=== PATIENT | male | born 1945 | race American Indian/Alaskan Native ===

== ENCOUNTER 2017-02-03 10:22 | Day surgery (SDC) | payer MEDICARE ==
--- NOTE | 2017-02-03 11:08 | Anesthesia Consultation ---
Anesthesia Consult and Med Hx Date of service: 02/03/17 - Airway Anesthetic Teeth Evaluation: Good, Chipped (top front, left right molar), Caps ROM Head & Neck: Adequate Mental/Hyoid Distance: Adequate Mallampati Class: Class II Intubation Access Assessment: Probably Good - Pulmonary Exam CTA: Yes - Cardiac Exam Cardiac Exam: RRR - Pre-Operative Health Status ASA Pre-Surgery Classification: ASA2 Proposed Anesthetic Plan: MAC - Pulmonary Hx Smoking: Yes (quit 20 yrs ago) Hx Respiratory Symptoms: Yes (sinus problems, cough ) Hx Sleep Apnea: No - Cardiovascular System Hx Hypertension: Yes Hx Heart Attack/AMI: No - Central Nervous System Hx Neuromuscular Disorder: Yes (left arm chronic pain) Hx Seizures: Yes (patient reports "sleep seizures") CVA: No - Endocrine Hx Renal Disease: No Hx Cirrhosis: No Hx Insulin Dependent Diabetes: No Hx Thyroid Disease: No Hx Hypothyroidism: No - Other Systems Hx Cancer: No Hx Obesity: No
--- NOTE | 2017-02-03 11:08 | Anesthesia Day of Surgery ---
Anesthesia Day of Surgery - Day of Surgery Patient Examined: Yes Patient H&P Reviewed: Yes Patient is NPO: Yes Beta Blockers: Yes
[2017-02-03] MEDS ORDERED: DIPRIVAN 10 MG/ML IV ONE ×2 (11:21)
[2017-02-03] MEDS ORDERED: WATER FOR IRRIG STERILE IR ONE (11:22)
[2017-02-03] MEDS: NACL 0.9% 1000 ML 1,000 ML IV SCH ×2 (11:39→18:35)
[2017-02-03] MEDS ORDERED: WATER FOR IRRIG STERILE ONE (11:59)
[2017-02-03] MEDS ORDERED: LOPRESSOR IV ONE (12:00)
[2017-02-03] MEDS ORDERED: XYLOCAINE TOPICAL 2% ONE (12:05)
--- NOTE | 2017-02-03 12:48 | Operative Report ---
Operative Report Operative Report: Date of procedure: 02/03/2017 Procedure: Colonoscopy. Hemorrhoidal Band Ligation Attending physician: Antolin Dobbs MD Mechanical Maintenance Engineer: Antolin Dobbs MD Indication: Patient is a 64-year-old male who presents for colonoscopy. He has a history of rectal bleeding and rectal pain. A colonoscopy service to evaluate patients symptoms and also for colorectal cancer screening. Consent: Informed consent was obtained after advising the patient and family regarding nature of this procedure, its indications, potential benefits as well as possible complications including but not limited to bleeding perforation and adverse reaction to medication, infection as well as other cardiopulmonary complications. An informed written and verbal consent was then obtained after due opportunity was provided for questions and answers. Monitoring: Patient was monitored continuously with pulse oximetry and electrocardiographic recordings as well as blood pressure recordings. Vital signs remained stable throughout this procedure with no untoward events. Preoperative assessment: Patient was assessed immediately prior to this procedure for capacity to tolerate monitored anesthesia care and moderate sedation as well as general anesthesia. Patient's ASA classification is 2, Mallampati class is 2, Hyomental distance is 3. Instrument: Fujinon videocolonoscope. Fujinon video endoscope. Multiple band ligator: Speedband SuperView Super 7 ([employer]) Medications: Propofol given intravenously in divided doses. For details please refer to anesthesia records. Description of procedure: Patient was placed in the left lateral decubitus position after achieving sedation, a digital rectal examination was performed following which the colonoscope was introduced into the anal verge and advanced to the cecum which was identified by the cecal valve, the appendiceal orifice, as well as by the cecal strap and direct transillumination. The colonoscope was subsequently withdrawn with careful inspection of all mucosal surfaces. Patient tolerated this procedure well and was subsequently taken to the recovery room. The following findings were noted. Findings: Patient had significant diverticulosis involving the sigmoid colon and the descending colon. The ascending colon was also involved but much less so. The rest of the colon to the cecum was normal, except for areas of retained stool. On the retroflex view at the anal verge, patient had prominent large friable internal hemorrhoids. After completing the colonoscopic examination, the Fujinon video endoscope was preloaded with the multiple band ligator. It was then reintroduced into the rectum after using lidocaine gel to numb the rectum. Following this, in a retroflexed view, multiple bands were applied over the internal hemorrhoids. In all, all 7 bands were applied due to size of internal hemorrhoids. All bands were applied above the dentate line. Patient tolerated the procedure well with no untoward events. Impression: Diverticular disease of the colon. Prominent friable Internal hemorrhoids, status post successful hemorrhoidal band ligation. Plan: Daily sitz baths. High-fiber diet. Patient to apply lidocaine ointment 5% per rectum every 6 hours as needed. Anusol HC suppositories per rectum every night. Patient to use stool softeners as needed. MiraLAX 17 g in 8 ounce glass of water has been prescribed. Tramadol 50 mg every 6 hours as needed for pain. Patient is scheduled for further outpatient follow-up. Patients further instructed that if he has persistent bleeding and or fevers to call the office immediately..
[2017-02-03 12:53] VITALS: BP 129/88
--- NOTE | 2017-02-03 14:54 | Post Anesthesia Evaluation ---
- Post Anesthesia Evaluation Patient Participated: Yes Airway Patent: Yes Stable Respiratory Function: Yes Nausea/Vomiting: No Temp > 96.8F: Yes Pain Manageable: Yes Adequeate Hydration: Yes Anesthesia Complications: No Block Receding Appropriately: Not Applicable Patient on Ventilator: No
== END 2017-02-03 10:23 | disposition home or self-care (01) ==
LOC: GIO 10:22
PROVIDERS: ATTEND Internal Medicine Gastroenterology
DX: K64.8 Other hemorrhoids (principal); K57.30 Diverticulosis of large intestine without perforation or abscess without bleeding; M19.90 Unspecified osteoarthritis, unspecified site; I10 Essential (primary) hypertension; Z87.891 Personal history of nicotine dependence; Z72.89 Other problems related to lifestyle
CPT/HCPCS: 45350; J2704; J7030

== ENCOUNTER 2017-02-07 13:34 | Emergency (ER) | payer MEDICARE ==
[2017-02-07 14:42] VITALS: BP 137/81
--- NOTE | 2017-02-07 14:53 | Emergency Department Report ---
Entered by ANTOINETTE FORREST, acting as scribe for ANTONI SUAREZ NP. Chief Complaint: Urogenital-Male Stated Complaint: CANNOT URINATE Time Seen by Provider: 02/07/17 14:44 - HPI History of Present Illness: 71 y/o non-toxic, non ill-appearing male in no acute distress presents to ED c/ o inability to urinate since 2 days ago. Reports he recently had a colonoscopy and hemorrhoid procedure on 02/03/2017, 2 days prior to current Sx. Denies burning with urination before urinary symptoms, penile ulcers or lesions. Denies abdominal pain, nausea, vomiting, chest pain, SOB, or extremity swelling. - ROS Review of Systems: + urinary retention - burning with urination, penile ulcers - chest pain, SOB, abdominal pain, nausea, vomiting, extremity swelling - Exam Vital Signs: Vital Signs 02/07/17 14:35 Temperature 97.8 F Pulse Rate 54 L Respiratory 20 Rate Blood Pressure 137/81 O2 Sat by Pulse 97 Oximetry Physical Exam: Pt is non ill appearing, non-toxic, no acute distress MSE screening note: Focused history and physical exam performed. Due to findings the following was ordered: CBC, CMP, UA, CK ED Disposition for MSE Condition: Stable This documentation as recorded by the scribe,ANTOINETTE FORREST,accurately reflects the service I personally performed and the decisions made by ,ANTONI SUAREZ, BECK.
[2017-02-07 15:10] LABS: Basophils % (Auto) 0.4 % (0.0-1.8); Eosinophils % (Auto) 2.4 % (0.0-4.3); Hemoglobin 13.5 gm/dl (11.8-15.2); Mean Corpuscular HGB Conc 33 % (32-34); Mean Corpuscular Hemoglobin 33 pg (28-32); Mean Corpuscular Volume 99 fl (84-94); Platelet Count 220 K/mm3 (140-440); Red Blood Count 4.13 M/mm3 (3.65-5.03); Red Cell Distribution Width 13.2 % (13.2-15.2); White Blood Count 5.7 K/mm3 (4.5-11.0)
[2017-02-07 15:28] LABS: Alanine Aminotransferase 29 units/L (7-56); Albumin 4.5 g/dL (3.9-5); Albumin/Globulin Ratio 1.4 %; Alkaline Phosphatase 58 units/L (35-129); Anion Gap 16 mmol/L; Blood Urea Nitrogen 9 mg/dL (9-20); Calcium 9.7 mg/dL (8.4-10.2); Carbon Dioxide 29 mmol/L (22-30); Chloride 97.8 mmol/L (98-107); Creatine Kinase 589 units/L (55-170); Glucose 100 mg/dL (75-100); Potassium 4.7 mmol/L (3.6-5.0); Sodium 138 mmol/L (137-145); Total Protein 7.8 g/dL (6.3-8.2)
== END 2017-02-07 17:30 | disposition left against medical advice (07) ==
LOC: ED 13:34
DX: R30.0 Dysuria (principal); R33.9 Retention of urine, unspecified; Z53.21 Procedure and treatment not carried out due to patient leaving prior to being seen by health care provider
CPT/HCPCS: 36415; 80053; 82550; 85025

== ENCOUNTER 2019-05-21 11:00 | Outpatient (CLI) | payer MEDICARE | END 2019-05-21 11:01 | disposition home or self-care (01) | LOC: SLR 11:00 | PROVIDERS: ATTEND Otolaryngology | DX: G47.33 Obstructive sleep apnea (adult) (pediatric) (principal); R40.0 Somnolence; R06.83 Snoring; E66.9 Obesity, unspecified; I10 Essential (primary) hypertension | CPT/HCPCS: 95810 ==